=== PATIENT | female | born 1950 | race Caucasian/White ===

== ENCOUNTER 2017-07-22 10:45 | Inpatient (IN) | payer OTHER ==
[~2017-07-22] VITALS: Ht 162.6 cm; Wt 64.8 kg
[2017-07-22] MEDS ORDERED: OCUVITE TABLET1 EACH PO (11:20)
[2017-07-22] MEDS ORDERED: JANUVIA100 MG PO (11:21)
[2017-07-22] MEDS ORDERED: METFORMIN HCL1000 MG PO (11:21)
[2017-07-22] MEDS ORDERED: COZAAR100 MG PO (11:22)
[2017-07-22] MEDS ORDERED: ERGOCALCIF50000 UNIT PO (11:22)
[2017-07-22] MEDS ORDERED: AMARYL1 MG PO (11:23)
[2017-07-22] MEDS ORDERED: NAPROSYN500 MG PO (11:23)
[2017-07-22] MEDS ORDERED: ATORVASTATIN CA40 MG PO (11:24)
[2017-07-22] MEDS ORDERED: VITAMIN A10000 UNIT PO (11:24)
[2017-07-22] MEDS ORDERED: LASIX20 MG PO (11:24)
[2017-07-22] MEDS ORDERED: AMITRIPTYLINE H10 MG PO (11:25)
[2017-07-22 12:21] LABS: HEMATOCRIT 32.5 % (36.0-46.0); HEMOGLOBIN 11.2 G/DL (11.9-15.5); MCH 30.1 PG (29.0-34.0); MCHC 34.5 G/DL (30.0-36.0); MCV 87.4 FL (83-99); PLATELET COUNT 192 K/uL (156-360); RBC DIS.WIDTH-CV 12.9 % (11.8-14.6); RBC DIS.WIDTH-SD 40.8 % (39-53); RED BLOOD COUNT 3.72 M/uL (3.80-5.20); WHITE BLOOD COUNT 6.8 K/uL (4.1-10.2)
[2017-07-22 12:24] LABS: APPEARANCE TURBID ((CLEAR)); BILIRUBIN NEGATIVE; BLOOD SMALL; COLOR AMBER ((YELLOW)); GLUCOSE (STRIP) NEGATIVE; KETONES NEGATIVE; LEUKOCYTES LARGE; NITRITE NEGATIVE; PROTEIN (STRIP) 100; SPECIFIC GRAVITY 1.017 (1.000-1.030); UROBILINOGEN 0.2 MG/DL (0.2-1.0)
[2017-07-22 12:30] LABS: BACTERIA NONE SEEN /HPF; EPITHELIAL CELLS NONE SEEN /HPF; MUCUS NONE SEEN /LPF; RED BLOOD CELLS 15-20 /HPF (0-5); WHITE BLOOD CELLS TNTC /HPF (0-5)
[2017-07-22 12:35] LABS: ALBUMIN 4.1 g/dL (3.2-4.8)
[2017-07-22 12:36] LABS: CHLORIDE 102 mEq/L (99-109); POTASSIUM 4.3 mEq/L (3.7-5.4); SODIUM 134 mEq/L (136-147)
[2017-07-22 12:38] LABS: GLUCOSE 213 mg/dL (70-99); TOTAL PROTEIN 7.1 g/dL (6.4-8.3)
[2017-07-22 12:40] LABS: TOTAL BILIRUBIN 2.1 mg/dL (0.0-1.0)
[2017-07-22 12:41] LABS: ALKALINE PHOSPHATASE 79 IU/L (3-129)
[2017-07-22 12:42] LABS: GFR ESTIMATE (CALCULATED) 59 mL/min/
[2017-07-22 12:43] LABS: AST (GOT) 52 IU/L (2-34); UREA NITROGEN (BUN) 24 mg/dL (9-23)
[2017-07-22 12:44] LABS: ALT (GPT) 43 IU/L (3-49); TROP-I INTERPRETATION NEGATIVE; TROPONIN-I 0.02 ng/mL (0.0-0.30)
[2017-07-22 17:08] VITALS: BP 141/79
[2017-07-22 20:10] VITALS: BP 133/65
[2017-07-22 23:50] VITALS: BP 162/78
[2017-07-23 03:30] VITALS: BP 124/82
[2017-07-23 06:07] LABS: HEMOGLOBIN 9.7 G/DL (11.9-15.5); MCH 29.1 PG (29.0-34.0); MCHC 33.4 G/DL (30.0-36.0); MCV 87.1 FL (83-99); PLATELET COUNT 155 K/uL (156-360); RBC DIS.WIDTH-CV 12.7 % (11.8-14.6); RBC DIS.WIDTH-SD 40.6 % (39-53); RED BLOOD COUNT 3.33 M/uL (3.80-5.20); WHITE BLOOD COUNT 4.5 K/uL (4.1-10.2)
[2017-07-23 06:35] LABS: CHLORIDE 109 MEQ/L (99-109); CREATININE 0.9 MG/DL (0.6-1.3); GFR ESTIMATE (CALCULATED) > 59 mL/min/; GLUCOSE 217 mg/dL (70-99); POTASSIUM 3.8 MEQ/L (3.7-5.4); SODIUM 139 MEQ/L (136-147); UREA NITROGEN (BUN) 17 mg/dL (9-23)
[2017-07-23 08:52] VITALS: BP 174/94
[2017-07-23 11:12] VITALS: BP 136/77
[2017-07-23 16:46] VITALS: BP 176/96
[2017-07-23 19:23] VITALS: BP 123/86
[2017-07-23 23:32] VITALS: BP 179/84
[2017-07-24 04:01] VITALS: BP 172/82
[2017-07-24 05:53] LABS: BASOPHIL (%) 0.1 % (0-1); EOSINOPHIL (%) 0.1 % (0-5); HEMATOCRIT 28.6 % (36.0-46.0); HEMOGLOBIN 9.5 G/DL (11.9-15.5); IMMATURE GRANULOCYTE (%) 0.4 % (0.0-0.7); LYMPHOCYTE (%) 13.7 % (15-42); MCHC 33.2 G/DL (30.0-36.0); MCV 87.2 FL (83-99); MONOCYTE (%) 6.1 % (3-12); MONOCYTE COUNT 0.4 K/uL (0-0.8); NEUTROPHIL (%) 79.6 % (45-76); NEUTROPHIL COUNT 5.5 K/uL (1.8-6.4); PLATELET COUNT 162 K/uL (156-360); RBC DIS.WIDTH-CV 12.7 % (11.8-14.6); RBC DIS.WIDTH-SD 40.7 % (39-53); RED BLOOD COUNT 3.28 M/uL (3.80-5.20); WHITE BLOOD COUNT 6.9 K/uL (4.1-10.2)
[2017-07-24 06:14] LABS: CHLORIDE 110 MEQ/L (99-109); CREATININE 0.8 MG/DL (0.6-1.3); GFR ESTIMATE (CALCULATED) > 59 mL/min/; GLUCOSE 204 mg/dL (70-99); POTASSIUM 3.5 MEQ/L (3.7-5.4); SODIUM 139 MEQ/L (136-147); UREA NITROGEN (BUN) 14 mg/dL (9-23)
[2017-07-24 08:05] VITALS: BP 143/72
[2017-07-24 12:09] VITALS: BP 140/70
[2017-07-24 15:36] VITALS: BP 138/79
[2017-07-24 19:41] VITALS: BP 124/58
[2017-07-24 23:44] VITALS: BP 130/60
[2017-07-25 03:30] VITALS: BP 111/61
[2017-07-25 05:09] LABS: BASOPHIL (%) 0.2 % (0-1); EOSINOPHIL (%) 2.9 % (0-5); EOSINOPHIL COUNT 0.2 K/uL (0-0.3); HEMOGLOBIN 8.2 G/DL (11.9-15.5); IMMATURE GRANULOCYTE (%) 0.8 % (0.0-0.7); LYMPHOCYTE COUNT 1.1 K/uL (1.0-2.8); MCH 29.3 PG (29.0-34.0); MCHC 34.2 G/DL (30.0-36.0); MCV 85.7 FL (83-99); MONOCYTE (%) 7.2 % (3-12); MONOCYTE COUNT 0.4 K/uL (0-0.8); NEUTROPHIL (%) 67.9 % (45-76); NEUTROPHIL COUNT 3.6 K/uL (1.8-6.4); PLATELET COUNT 146 K/uL (156-360); RBC DIS.WIDTH-CV 12.9 % (11.8-14.6); RBC DIS.WIDTH-SD 41.1 % (39-53); WHITE BLOOD COUNT 5.3 K/uL (4.1-10.2)
[2017-07-25 05:20] LABS: POTASSIUM 3.4 mEq/L (3.7-5.4); SODIUM 140 mEq/L (136-147)
[2017-07-25 05:22] LABS: CHLORIDE 116 mEq/L (99-109); GLUCOSE 173 mg/dL (70-99)
[2017-07-25 05:26] LABS: CREATININE 0.7 mg/dL (0.6-1.3); GFR ESTIMATE (CALCULATED) > 59 mL/min/
[2017-07-25 05:27] LABS: UREA NITROGEN (BUN) 12 mg/dL (9-23)
[2017-07-25 07:58] VITALS: BP 116/66
[2017-07-25 11:59] VITALS: BP 111/66
[2017-07-25 17:30] VITALS: BP 139/99
[2017-07-25 20:12] VITALS: BP 119/66
[2017-07-25 23:49] VITALS: BP 117/69
[2017-07-26 04:26] VITALS: BP 130/71
[2017-07-26 07:04] LABS: BASOPHIL (%) 0.2 % (0-1); EOSINOPHIL (%) 2.9 % (0-5); EOSINOPHIL COUNT 0.2 K/uL (0-0.3); HEMATOCRIT 24.9 % (36.0-46.0); HEMOGLOBIN 8.6 G/DL (11.9-15.5); IMMATURE GRANULOCYTE (%) 0.6 % (0.0-0.7); LYMPHOCYTE (%) 22.7 % (15-42); LYMPHOCYTE COUNT 1.2 K/uL (1.0-2.8); MCH 29.8 PG (29.0-34.0); MCHC 34.5 G/DL (30.0-36.0); MCV 86.2 FL (83-99); MONOCYTE (%) 6.4 % (3-12); MONOCYTE COUNT 0.3 K/uL (0-0.8); NEUTROPHIL (%) 67.2 % (45-76); NEUTROPHIL COUNT 3.5 K/uL (1.8-6.4); PLATELET COUNT 181 K/uL (156-360); RBC DIS.WIDTH-CV 13.3 % (11.8-14.6); RBC DIS.WIDTH-SD 42.1 % (39-53); RED BLOOD COUNT 2.89 M/uL (3.80-5.20); WHITE BLOOD COUNT 5.2 K/uL (4.1-10.2)
[2017-07-26 07:25] LABS: CHLORIDE 115 MEQ/L (99-109); CREATININE 0.7 MG/DL (0.6-1.3); GFR ESTIMATE (CALCULATED) > 59 mL/min/; GLUCOSE 194 mg/dL (70-99); POTASSIUM 3.9 MEQ/L (3.7-5.4); SODIUM 145 MEQ/L (136-147); UREA NITROGEN (BUN) 10 mg/dL (9-23)
[2017-07-26 08:10] VITALS: BP 152/62
[2017-07-26 16:18] VITALS: BP 143/72
[2017-07-27] VITALS: BP 144/68
[2017-07-27 08:06] VITALS: BP 167/90
[2017-07-27 15:08] VITALS: BP 179/82
[2017-07-28 00:07] VITALS: BP 181/79
[2017-07-28 00:14] VITALS: BP 152/62
[2017-07-28 08:42] VITALS: BP 164/77
[2017-07-28 17:13] VITALS: BP 179/83
[2017-07-28 20:20] VITALS: BP 189/87
[2017-07-29 00:27] VITALS: BP 166/80
[2017-07-29 08:00] VITALS: BP 178/82
[2017-07-29 10:43] LABS: HEMOGLOBIN 9.9 G/DL (11.9-15.5); MCH 28.7 PG (29.0-34.0); NRBC (%) 0.4 /100 WBC (0-0); PLATELET COUNT 321 K/uL (156-360); RBC DIS.WIDTH-CV 14.4 % (11.8-14.6); RBC DIS.WIDTH-SD 43.8 % (39-53); RED BLOOD COUNT 3.45 M/uL (3.80-5.20); WHITE BLOOD COUNT 7.3 K/uL (4.1-10.2)
[2017-07-29 11:17] LABS: CHLORIDE 106 MEQ/L (99-109); CREATININE 0.8 MG/DL (0.6-1.3); GFR ESTIMATE (CALCULATED) > 59 mL/min/; GLUCOSE 251 mg/dL (70-99); POTASSIUM 3.5 MEQ/L (3.7-5.4); SODIUM 143 MEQ/L (136-147); UREA NITROGEN (BUN) 5 mg/dL (9-23)
[2017-07-29 11:57] VITALS: BP 169/97
[2017-07-29 16:00] VITALS: BP 189/81
[2017-07-29 23:52] VITALS: BP 133/62
[2017-07-30 07:45] VITALS: BP 180/85
[2017-07-30 16:27] VITALS: BP 140/67
[2017-07-30 20:00] VITALS: BP 156/88
[2017-07-30 23:48] VITALS: BP 156/83
[2017-07-31 07:15] VITALS: BP 155/80
[2017-07-31 23:28] VITALS: BP 147/67
[2017-08-01 08:42] VITALS: BP 144/81
[2017-08-01] MEDS ORDERED: QUETIAPINE FUMA50 MG PO (14:00)
== END 2017-08-01 16:27 | disposition home health service (06) | DRG 871 ==
LOC: EME 10:45 → 4SOUTH 14:13 → EDOF 14:13 → CANRESERV 14:52 → EDOF 14:52 → ENRESERV 14:52 → 4SOUTH 16:59
PROVIDERS: Emergency Medicine; Internal Medicine; Physician Assistant; Physician Assistant Medical
DX: A41.9 Sepsis, unspecified organism (principal); G93.41 Metabolic encephalopathy; N39.0 Urinary tract infection, site not specified; R65.20 Severe sepsis without septic shock; B96.20 Unspecified Escherichia coli [E. coli] as the cause of diseases classified elsewhere; R09.02 Hypoxemia; R13.10 Dysphagia, unspecified; R26.2 Difficulty in walking, not elsewhere classified; I10 Essential (primary) hypertension; E11.9 Type 2 diabetes mellitus without complications; G10 Huntington's disease; G25.9 Extrapyramidal and movement disorder, unspecified; Z79.84 Long term (current) use of oral hypoglycemic drugs
CPT/HCPCS: 70450; 71045; 71046; 73502; 74176; 74230; 80048; 80053; 81003; 82140; 82948; 83605; 84443; 84484; 85025; 85027; 87040; 87077; 87086; 87186; 92610 GN; 92611 GN; 93005; 95819; 97530 GO; 99281; 99285; J0295; J0360; J0696; J1644; J1815; J2543; J7030; J7050; S0028